=== PATIENT | male | born 1960 | race Caucasian/White ===

== ENCOUNTER 2018-05-17 12:47 | Emergency (ER) | payer MEDICAID ==
[2018-05-17] MEDS ORDERED: ACETAMINOPHEN EXTRA STRENGTH 500 MG TABLET ONE (13:11)
== END 2018-05-17 13:22 | disposition home or self-care (01) ==
LOC: EDH 12:47
DX: K08.89 Other specified disorders of teeth and supporting structures (principal); F20.9 Schizophrenia, unspecified; Z88.8 Allergy status to other drugs, medicaments and biological substances; Z87.442 Personal history of urinary calculi; Z72.0 Tobacco use